=== PATIENT | female | born 1955 | race Two or more races ===

== ENCOUNTER → 2018-02-08 10:02 | Outpatient (CLI) | payer BC, SELFPAY | PROVIDERS: Family Provider Family Medicine; PCP Family Medicine; Visit Provider Family Medicine | DX: Z12.4 Encounter for screening for malignant neoplasm of cervix (principal) | CPT/HCPCS: 87624; 88175; G0145 ==

== ENCOUNTER → 2018-05-28 09:06 | Outpatient (CLI) | payer BC, SELFPAY ==
--- NOTE | 2018-05-28 09:14 | MRI_ITS ---
STUDY: MRI CERVICAL SPINE WITH AND WITHOUT CONTRAST REASON FOR EXAM: Female, 63 years old. Radiculopathy with neck and bilateral arm pain. Fusion of C3-C4 and C5-C6. TECHNIQUE: Standardized fat and water weighted pulse sequences were obtained in the sagittal and axial following administration of Gadavist 7 ml IV. COMPARISON: None FINDINGS: Normal foramen magnum and brainstem-cervical cord junction. Normal craniovertebral junction. Normal anterior atlantoaxial articulation. Normal odontoid process. There is fusion of the C4, C5, C6 vertebral bodies with reversal of the cervical lordosis in this region. The remaining vertebral bodies are normal in height and appearance. C2-3: Normal endplates. Normal disc height, signal and morphology. Normal central canal and intervertebral neural foramina. C3-4: There is mild disc bulge abutting the ventral spinal cord with mild narrowing of the dorsal CSF space. There is bilateral uncovertebral and facet hypertrophy causing mild bilateral foraminal narrowing. The posterior cortex of C4-C6 abut the ventral spinal cord causing ventral thecal sac narrowing though there is maintenance of the dorsal CSF space. There is no neural foraminal narrowing at C4-C5 and C5-C6.. C6-7: There is posterior disc osteophyte complex and ligamentum flavum hypertrophy. Bilateral facet arthrosis and uncovertebral hypertrophy. Moderate central canal narrowing with effacement of the ventral and dorsal CSF space. Marked bilateral foraminal narrowing. C7-T1: Normal endplates. Normal disc height, signal and morphology. Normal central canal and intervertebral neural foramina. Normal cervical cord. Normal visualized soft tissue structures. There is no enhancing abnormality. MRI/Spine Cervical W/WO Contrast IMPRESSION: There is marked degenerative disc disease at C6-C7 as described above. Fusion of C4, C5 and C6 vertebral bodies with reversal of the cervical lordosis in this region. The posterior cortex of C4-C6 abuts the ventral spinal cord causing ventral thecal sac narrowing though the dorsal CSF space is maintained at these levels. Normal cervical cord. Electronically Signed: Padma Glynn, at 15:26 EST Tel , Service support ,
== END ==
LOC: MRI 09:07
PROVIDERS: Family Provider Family Medicine; PCP Family Medicine; Referring Provider Nurse Practitioner Family; Visit Provider Nurse Practitioner Family
DX: Z01.812 Encounter for preprocedural laboratory examination (principal); M48.9 Spondylopathy, unspecified; M54.12 Radiculopathy, cervical region; M47.812 Spondylosis without myelopathy or radiculopathy, cervical region
CPT/HCPCS: 72156; A9585

== ENCOUNTER → 2019-05-14 09:41 | Outpatient (CLI) | payer BC, SELFPAY ==
--- NOTE | 2019-05-14 09:50 | RAD_ITS ---
HISTORY: RECENT C-SPINE SURGERY FEB 2019, PAIN PRIMARILY RT SIDE NECK/MID BACK AREA TECHNIQUE: Thoracic spine 3 views Number of images including paperwork: 3 COMPARISON: None FINDINGS: VERTEBRAE: No acute fracture. Mineralization appears decreased. VERTEBRAL ALIGNMENT: No traumatic subluxation. DISKS AND JOINTS: [id number] multilevel discogenic degenerative changes in the thoracic spine. Posterior spinal fusion hardware noted at C6-7. SOFT TISSUES: Unremarkable paraspinous soft tissues. RAD/Thoracic Spine 3 Views IMPRESSION: Degenerative changes without acute osseous abnormality. at 2253 Reported and signed by: Cheryl Tran MD Electronically Signed: Cheryl Tran MD at 22:53 EST Tel , Service support ,
== END ==
PROVIDERS: PCP Family Medicine; Referring Provider Nurse Practitioner Family; Visit Provider Nurse Practitioner Family
DX: M54.6 Pain in thoracic spine (principal)
CPT/HCPCS: 72072

== ENCOUNTER 2020-01-27 06:02 | Day surgery (SDC) | payer BC, SELFPAY ==
[2020-01-27 06:23] VITALS: BP 111/86; PULSE 90; RESP 16; TEMP 37.6; O2SAT 97; BMI 20.9
[2020-01-27] MEDS: Lactated Ringers 1,000 ML 100 ML IV (06:30)
--- NOTE | 2020-01-27 07:30 | RAD_ITS ---
PROCEDURE: Right C4-C7 cervical steroid injection. DATE OF EXAMINATION: 01/27/2020 INDICATION: Female, 65 years old. Chronic neck pain. FLUOROSCOPY TIME (if supplied): (14.6 seconds) minutes/seconds. 4 intraoperative images were obtained. Intraoperative imaging provided for right C4-C7 steroid injection. RAD/Cerv Spine 4 or 5 Views IMPRESSION: Intraoperative imaging provided for right C4-C7 steroid injection. Electronically Signed: Carroll Chaves, at 9:23 EST , Service support ,
[2020-01-27] MEDS: MethylPREDNISolone Acetate 40 MG/ML Vial IM (07:48)
[2020-01-27] MEDS: Bupivacaine 0.25% 30 ML Vial (07:48)
[2020-01-27 07:55] VITALS: BP 111/86; BP 113/71; PULSE 84; RESP 16; TEMP 37.1; O2SAT 100
[2020-01-27 08:00] VITALS: BP 111/86; BP 119/79; PULSE 83; RESP 16; O2SAT 94
[2020-01-27 08:05] VITALS: BP 111/86; BP 116/63; PULSE 84; RESP 16; O2SAT 94
[2020-01-27 08:10] VITALS: BP 104/70; BP 111/86; PULSE 80; RESP 16; TEMP 36.8; O2SAT 98
[2020-01-27 08:23] VITALS: BP 111/86
--- NOTE | 2020-01-27 14:29 | OP.PCM_ITS ---
Report of Operation Date of Procedure: 01/27/20 Description of Surgical Findings:: PREOPERATIVE DIAGNOSIS: Cervical spondylosis, cervical degenerative disc disease, cervical facet arthropathy POSTOPERATIVE DIAGNOSIS: Cervical spondylosis, cervical degenerative disc disease, cervical facet arthropathy PROCEDURE PERFORMED: Right-sided cervical facet steroid injection, C4, C5, C6, and C7. ANESTHESIA: MAC. BLOOD LOSS: Minimal. COMPLICATIONS: None. DESCRIPTION OF PROCEDURE: History and physical of today was reviewed. Risks and benefits of the procedure were explained. The patient understood and agreed to proceed. Informed consent was obtained. IV inserted per routine protocol. The patient was taken to the operating room and placed in the prone position with a pillow positioned underneath the chest. The neck area was prepped and draped in a sterile fashion using iodine x3. Under fluoroscopy guidance on an AP view, the C4 through C7 vertebral bodies were visualized at approximately 10- degree angle, starting on the Right C4, ending on the Right C7, passing through the C5 and C6. Using a 25-gauge 3-1/2-inch spinal needle, the needle was advanced via the skin. The tip of the needle was maneuvered and directed towards the epiphyseal junction of each corresponding vertebra. Once the tip of the needle was at the vicinity of the medial branch, the needle was pulled approximately 2 mm off the bone. After negative aspiration of blood or CSF and confirmation on AP, oblique as well as lateral view, a total of 4 mL of preservative-free 0.25% Marcaine with 80 mg of Depo-Medrol was injected in divided doses between those four levels. The needles were then removed intact. The patient experienced no sign or symptoms of intrathecal or intravascular injection. The patient experienced no paresthesia. The procedure was completed without any apparent difficulty or any complications. The patient appeared to tolerate it well. ASSESSMENT AND PLAN: This is a 65-year-old female with cervical spondylosis, cervical degenerative disc disease, cervical facet arthropathy status post right-sided cervical facet steroid injection C4-C7, patient will continue her current medications, patient will follow up in approximately 2 weeks for reevaluation.
== END 2020-01-27 08:28 | disposition home or self-care (01) ==
LOC: SDC 06:04 → AC 06:04
PROVIDERS: PCP Family Medicine; Referring Provider Anesthesiology Pain Medicine; Visit Provider Anesthesiology Pain Medicine
PROC: 3E0U3BZ Introduction of Anesthetic Agent into Joints, Percutaneous Approach (ICD-10-PCS; CPT 64490; principal; 2020-01-27 07:25)
DX: M47.812 Spondylosis without myelopathy or radiculopathy, cervical region (principal); M48.9 Spondylopathy, unspecified; M54.12 Radiculopathy, cervical region; M79.18 Myalgia, other site; Z79.891 Long term (current) use of opiate analgesic; M54.6 Pain in thoracic spine; Z98.1 Arthrodesis status
CPT/HCPCS: 64491; 64492; 64490; 72050; J7120

== ENCOUNTER 2020-03-02 09:57 | Day surgery (SDC) | payer BC, SELFPAY ==
[2020-03-02 10:25] VITALS: BP 132/74; PULSE 77; RESP 16; TEMP 36.2; O2SAT 96; BMI 20.5
--- NOTE | 2020-03-02 11:10 | RAD_ITS ---
STUDY: X-RAY - CERVICAL SPINE REASON FOR EXAM: Female, 65 years old. CERVICAL FACETS STEROID INJECTIONS C4-7 RIGHT TECHNIQUE: 4 view(s) of the cervical spine were obtained. COMPARISON: 01/27/2020 FINDINGS: Fluoroscopy the cervical spine was utilized and operating room and 4 images suspended for interpretation.. RAD/Cerv Spine 2 or 3 Views IMPRESSION: Fluoroscopy during steroid injection. Electronically Signed: Vishnu Lazar MD at 17:08 EST Tel , Service support ,
[2020-03-02] MEDS: MethylPREDNISolone Acetate 40 MG/ML Vial IM (11:17)
[2020-03-02] MEDS: Bupivacaine 0.25% 30 ML Vial (11:18)
[2020-03-02 11:27] VITALS: BP 125/87; BP 132/74; PULSE 95; RESP 16; TEMP 36.5; O2SAT 100
[2020-03-02 11:30] VITALS: BP 113/66; BP 132/74; PULSE 79; RESP 16; O2SAT 95
[2020-03-02 11:35] VITALS: BP 119/76; BP 132/74; PULSE 77; RESP 16; O2SAT 96
[2020-03-02 11:40] VITALS: BP 112/75; BP 132/74; PULSE 72; RESP 16; TEMP 36.3; O2SAT 94
--- NOTE | 2020-03-02 11:41 | OP.PCM_ITS ---
Report of Operation Date of Procedure: 03/02/20 Description of Surgical Findings:: PREOPERATIVE DIAGNOSIS: Cervical spondylosis, cervical degenerative disc disease, cervical facet arthropathy POSTOPERATIVE DIAGNOSIS: Cervical spondylosis, cervical degenerative disc disease, cervical facet arthropathy PROCEDURE PERFORMED: Right-sided cervical facet steroid injection, C4, C5, C6, and C7. ANESTHESIA: MAC. BLOOD LOSS: Minimal. COMPLICATIONS: None. DESCRIPTION OF PROCEDURE: History and physical of today was reviewed. Risks and benefits of the procedure were explained. The patient understood and agreed to proceed. Informed consent was obtained. IV inserted per routine protocol. The patient was taken to the operating room and placed in the prone position with a pillow positioned underneath the chest. The neck area was prepped and draped in a sterile fashion using iodine x3. Under fluoroscopy guidance on an AP view, the C4 through C7 vertebral bodies were visualized at approximately 10- degree angle, starting on the right C4, ending on the right C7, passing through the C5 and C6. Using a 25-gauge 3-1/2-inch spinal needle, the needle was advanced via the skin. The tip of the needle was maneuvered and directed towards the epiphyseal junction of each corresponding vertebra. Once the tip of the needle was at the vicinity of the medial branch, the needle was pulled approximately 2 mm off the bone. After negative aspiration of blood or CSF and confirmation on AP, oblique as well as lateral view, a total of 4 mL of preservative-free 0.25% Marcaine with 80 mg of Depo-Medrol was injected in divided doses between those four levels. The needles were then removed intact. The patient experienced no sign or symptoms of intrathecal or intravascular injection. The patient experienced no paresthesia. The procedure was completed without any apparent difficulty or any complications. The patient appeared to tolerate it well. ASSESSMENT AND PLAN: This is a 65-year-old female with cervical spondylosis, cervical degenerative disc disease, cervical facet arthropathy status post right-sided cervical facet steroid injection C4-C7, patient will continue her current medications, patient will follow in approximately 2 weeks for reevaluation.
[2020-03-02 12:00] VITALS: BP 132/74
== END 2020-03-02 12:01 | disposition home or self-care (01) ==
LOC: SDC 10:00 → AC 10:01
PROVIDERS: PCP Family Medicine; Referring Provider Anesthesiology Pain Medicine; Visit Provider Anesthesiology Pain Medicine
PROC: 3E0U3BZ Introduction of Anesthetic Agent into Joints, Percutaneous Approach (ICD-10-PCS; CPT 64490; principal; 2020-03-02 11:05)
DX: M47.812 Spondylosis without myelopathy or radiculopathy, cervical region (principal); Z87.891 Personal history of nicotine dependence; M48.9 Spondylopathy, unspecified; M54.12 Radiculopathy, cervical region; M79.18 Myalgia, other site; R51.9 Headache, unspecified; M54.6 Pain in thoracic spine; Z79.891 Long term (current) use of opiate analgesic
CPT/HCPCS: 64491; 64492; 64490; 72040; J7120

== ENCOUNTER 2020-03-30 06:42 | Day surgery (SDC) | payer BC, SELFPAY ==
[2020-03-30 07:00] VITALS: BP 126/71; PULSE 90; RESP 16; TEMP 37.3; O2SAT 94; BMI 20.5
[2020-03-30] MEDS: Lactated Ringers 1,000 ML 100 ML IV (07:23)
--- NOTE | 2020-03-30 08:00 | RAD_ITS ---
STUDY: X-RAY - CERVICAL SPINE REASON FOR EXAM: Female, 65 years old. RFA C4-C7 TECHNIQUE: AP and lateral fluoroscopic view(s) of the cervical spine were obtained. Dose area product: 0.02 mGycm2 COMPARISON: None FINDINGS: Fluoroscopic images initially show posterior fusion at C6-C7 with subsequent localization at C4, C5 (2 localizers) and C6. Accurate numbering of the cervical spine inhibited by incomplete visualization of the cervical spine RAD/Cerv Spine 2 or 3 Views IMPRESSION: 1. Fluoroscopic guidance for cervical spine localization. Please see operative report. Electronically Signed: Jarad Odonnell MD ([place]) at 9:41 EST , Service support ,
[2020-03-30] MEDS: Lidocaine 1% (30 ml sdv) 30 ML Vial (08:10)
[2020-03-30] MEDS: Bupivacaine 0.25% 30 ML Vial (08:10)
[2020-03-30] MEDS: MethylPREDNISolone Acetate 40 MG/ML Vial IM (08:10)
[2020-03-30 08:25] VITALS: BP 103/69; BP 126/71; PULSE 96; RESP 16; TEMP 36.6; O2SAT 100
[2020-03-30 08:30] VITALS: BP 107/81; BP 126/71; PULSE 88; RESP 16; O2SAT 100
[2020-03-30 08:35] VITALS: BP 101/87; BP 126/71; PULSE 79; RESP 16; O2SAT 97
[2020-03-30 08:37] VITALS: BP 126/71; BP 96/70; PULSE 75; RESP 16; TEMP 36.2; O2SAT 95
--- NOTE | 2020-03-30 08:45 | OP.PCM_ITS ---
Report of Operation Date of Procedure: 03/30/20 Description of Surgical Findings:: PREOPERATIVE DIAGNOSIS: Cervical spondylosis, cervical degenerative disc disease, cervical facet arthropathy POSTOPERATIVE DIAGNOSIS: Cervical spondylosis, cervical degenerative disc disease, cervical facet arthropathy PROCEDURE PERFORMED: Right-sided cervical radiofrequency ablation of the medial branch at C4, C5, C6, and C7. ANESTHESIA: MAC. BLOOD LOSS: Minimal. COMPLICATIONS: None. DESCRIPTION OF PROCEDURE: History and physical of today was reviewed. Risks and benefits of the procedure were explained. The patient understood and agreed to proceed. Informed consent was obtained. IV inserted per routine protocol. The patient was taken to the operating room and placed in the prone position with a pillow positioned underneath the chest. The neck area was prepped and draped in a sterile fashion using iodine x3. Under fluoroscopy guidance on an AP view, the C4 through C7 vertebral bodies were visualized. The skin and subcu taneous tissue was anesthetized with approximately 10 mL of 1% lidocaine using a 25-gauge regular needle. Under direct visualization on fluoroscopy on a lateral view, using a 21-gauge 10-cm with a 10-mm curved active-tip radiofrequency ablation needle, the needle was passed through the skin. The tip of the needle was maneuvered and directed towards the epiphyseal junction of each corresponding vertebra, starting on the right C4, ending on the right C7, passing through the C5 and C6. Once the tip of the needle was at the vicinity of the medial branch and at the middle of the trapezoid on the lateral view, the stylette of each needle was then removed. After negative aspiration of blood or CSF and confirmation on AP, oblique as well as lateral view, radiofrequency ablation probe was then inserted at each level. Impedance was then recorded at C4 to be 309 ohm, at C5 to be 284 ohm, at C6 to be 281 ohm, and at C7 to be 245 ohm. Motor-evoked potential was then initiated to 1.5 volt without any motor response to each corresponding level or the right arm. The probe was then removed intact and a total of 4 mL of preservative-free 1% lidocaine was injected in divided doses between those four levels after negative aspiration of blood or CSF. After repeated confirmation, the radiofrequency ablation probe was then inserted and after repeated confirmation on AP, oblique as well as lateral view, radiofrequency ablation was then initiated to approximately 80 degree Celsius for 60 second at each level. Once concluded, the probe was then removed intact. A total of 4 mL of preservative-free 0.25% Marcaine with 40 mg of Depo-Medrol was injected in divided doses between those four levels. The needles were then removed intact. The patient experienced no sign or symptoms of intrathecal or intravascular injection. The patient experienced no paresthesia. The procedure was completed without any apparent difficulty or any complications. The patient appeared to tolerate it well. Sensory as well as motor exam was unchanged from prior to the procedure. ASSESSMENT AND PLAN: This is a 65-year-old female with cervical spondylosis, cervical degenerative disc disease, cervical facet arthropathy status post right-sided cervical radiofrequency ablation of the medial branch at C4-C7, patient will continue her current medications, patient will follow in approximately 2 weeks for reevaluation.
[2020-03-30 09:09] VITALS: BP 126/71
== END 2020-03-30 09:10 | disposition home or self-care (01) ==
LOC: SDC 06:43 → AC 06:44
PROVIDERS: PCP Family Medicine; Referring Provider Anesthesiology Pain Medicine; Visit Provider Anesthesiology Pain Medicine
PROC: (CPT 62281; principal; 2020-03-30 07:45)
DX: M47.812 Spondylosis without myelopathy or radiculopathy, cervical region (principal); Z87.891 Personal history of nicotine dependence; Z98.1 Arthrodesis status; M48.9 Spondylopathy, unspecified; M54.12 Radiculopathy, cervical region; M79.18 Myalgia, other site; R51.9 Headache, unspecified; M54.6 Pain in thoracic spine; Z79.891 Long term (current) use of opiate analgesic
CPT/HCPCS: 62281 ×5; 72040; 76000; J7120

== ENCOUNTER → 2020-07-10 17:45 | Outpatient (CLI) | payer BC, SELFPAY ==
[2020-07-16 03:06] LABS: Age Gdln ACOG Testing 30-65 (.); HPV Genotype 16, Aptima Positive (Negative)
[2020-07-16 16:58] LABS: HPV APTIMA, High Risk Positive (Negative); HPV Genotype 18,45 Aptima Negative (Negative); HPV Reflexed? YES, CHARGE PATIENT
== END ==
PROVIDERS: PCP Family Medicine; Referring Provider Family Medicine; Visit Provider Family Medicine
DX: Z12.4 Encounter for screening for malignant neoplasm of cervix (principal); Z01.419 Encounter for gynecological examination (general) (routine) without abnormal findings
CPT/HCPCS: 87624; 88175; G0145

== ENCOUNTER 2021-01-11 08:00 | Day surgery (SDC) | payer BC, SELFPAY ==
[2021-01-11] VITALS (7 sets, daily range): BP systolic 106–124; BP diastolic 60–76; PULSE 70–84; RESP 16; TEMP 36.1–36.3; O2SAT 96–100; BMI 19.3
[2021-01-11] MEDS: Lactated Ringers 1,000 ML 100 ML IV (08:45)
[2021-01-11] MEDS: Lidocaine 1% (5 ml sdv) 5 ML Vial (09:18)
[2021-01-11] MEDS: MethylPREDNISolone Acetate 80 MG/ML Vial (09:19)
[2021-01-11] MEDS: Bupivacaine 0.25% 30 ML Vial (09:20)
--- NOTE | 2021-01-11 09:23 | OP.PCM_ITS ---
Report of Operation Date of Procedure: 01/11/21 Pre-Operative Diagnosis: Thoracic spondylosis, thoracic degenerative disc disea se, thoracic facet arthropathy Post-Operative Diagnosis: Thoracic spondylosis, thoracic degenerative disc disease, thoracic facet arthropathy Surgery/Procedure Performed:: Right thoracic medial branch injection at T3, T4, T5, T6 Description of Surgical Findings:: DESCRIPTION OF PROCEDURE: History and physical of today was reviewed. Risks and benefits of the procedure were explained. The patient understood and agreed to proceed. Informed consent was obtained. IV inserted per routine protocol. The patient was taken to the operating room and placed in the prone position with a pillow positioned underneath the chest. The mid back area was prepped and draped in a sterile fashion using iodine x3. Under fluoroscopy guidance on AP view, the T3 through T6 vertebral bodies were visualized. The skin and subcutaneous tissue was anesthetized with approximately 5 mL of 1% lidocaine using a 25-gauge regular needle. Under direct visualization on fluoroscopy, at approximately 15-degree angle, starting on the right T3, ending on the right T6, passing through the T4 and T5, using a 25-gauge 3-1/2-inch spinal needle, the needle was passed through the skin. The tip of the needle was maneuvered and directed towards the epiphyseal junction of each corresponding vertebra. Once the tip of the needle was at the vicinity of the medial branch and in contact with the bone, the needle was pulled approximately 2 mm off the bone. After negative aspiration for blood or CSF and confirmation on AP as well as oblique view and lateral view, a total of 6 mL of preservative-free 0.25% Marcaine with 80 mg of Depo- Medrol was injected in divided doses between those four levels. The needles were then removed intact. The patient experienced no sign or symptoms of intrathecal or intravascular injection. The patient experienced no paresthesia. The procedure was completed without any apparent difficulty or any complications. The patient appeared to tolerate it well. ASSESSMENT AND PLAN: This is a 66-year-old female with Thoracic spondylosis, thoracic degenerative disc disease, thoracic facet arthropathy status post right thoracic medial branch block at T3-T6, the patient will continue her current medications, the patient will follow in approximately 1 week for reevaluation. Type of Anesthesia: MAC Estimated Blood Loss (mL): Minimal Complications None.
--- NOTE | 2021-01-11 09:50 | RAD_ITS ---
PROCEDURE: Right T3-T6 medial branch block. DATE OF EXAMINATION: 01/11/2021. INDICATION: Female, 66 years old. Back pain. FLUOROSCOPY TIME (if supplied): (13.6 seconds) minutes/seconds. 5 images were obtained. RAD/Thoracic Spine 3 Views IMPRESSION: Intraoperative imaging provided for right sided T3-T6 medial branch block. Electronically Signed: Carroll Chaves MD at 15:46 EDT , Service support ,
== END 2021-01-11 10:10 | disposition home or self-care (01) ==
LOC: SDC 08:04 → AC 08:06
PROVIDERS: PCP Family Medicine; Visit Provider Anesthesiology Pain Medicine
PROC: 3E0R3BZ Introduction of Anesthetic Agent into Spinal Canal, Percutaneous Approach (ICD-10-PCS; CPT 62281; principal; 2021-01-11 09:45)
DX: M47.814 Spondylosis without myelopathy or radiculopathy, thoracic region (principal); M51.34 Other intervertebral disc degeneration, thoracic region; M46.94 Unspecified inflammatory spondylopathy, thoracic region; M19.90 Unspecified osteoarthritis, unspecified site; Z79.891 Long term (current) use of opiate analgesic; Z79.899 Other long term (current) drug therapy; Z87.891 Personal history of nicotine dependence
CPT/HCPCS: 01992; 64491; 64492; 64490; 72072; J7120

== ENCOUNTER → 2021-03-10 15:20 | Outpatient (CLI) | payer BC, SELFPAY | PROVIDERS: PCP Family Medicine; Visit Provider Family Medicine | DX: Z20.828 Contact with and (suspected) exposure to other viral communicable diseases (principal) | CPT/HCPCS: 87633; 87635; U0005; U0003 ==

== ENCOUNTER → 2022-08-25 | Outpatient (CLI) | payer BC, SELFPAY ==
[2022-08-31 07:08] LABS: Age Gdln ACOG Testing 30-65 (.); HPV APTIMA, High Risk Positive (Negative); HPV Genotype 16, Aptima Positive (Negative); HPV Genotype 18,45 Aptima Negative (Negative)
[2022-09-03 11:23] LABS: HPV Reflexed? YES, CHARGE PATIENT
== END | disposition home or self-care (01) ==
LOC: LABSPEC 16:15
PROVIDERS: PCP Family Medicine; Referring Provider Family Medicine; Visit Provider Family Medicine
DX: Z12.4 Encounter for screening for malignant neoplasm of cervix (principal)
CPT/HCPCS: 87624; 88175; G0145

== ENCOUNTER → 2022-09-23 | Outpatient (CLI) | payer BC, SELFPAY ==
--- NOTE | 2022-09-23 12:31 | MRI_ITS ---
EXAM: MR HEAD WITHOUT AND WITH INTRAVENOUS CONTRAST CLINICAL INDICATION: Migraine headache. History of left petrous mass resection. TECHNIQUE: Multiplanar and multisequence MR images of the brain were obtained without and with intravenous contrast. CONTRAST: IV 10ml Clariscan COMPARISON: No relevant prior studies available. FINDINGS: BRAIN AND EXTRA-AXIAL SPACES: Thin sections through the IACs fails to demonstrate any enhancing mass lesions along the 7th and 8th nerve bundles or any abnormal contrast enhancement of the membranous labyrinths. Following IV contrast administration, there is no visible or obvious enhancing mass intra-axially and extra-axially. No intra- or extra-axial hemorrhage. No evidence of acute infarct. There is preservation of the canas/white matter interface. Posterior fossa structures are unremarkable. Ventricles are appropriate for age. No hydrocephalus. Basal cisterns are patent. SELLA: Unremarkable. Normal sella turcica, pituitary gland, infundibular stalk, optic chiasm and hypothalamus. AUDITORY SYSTEM: Unremarkable. The internal auditory canals are patent. BONES/JOINTS: Left craniotomy. No discrete lytic or blastic abnormalities. SINUSES: Unremarkable as visualized. Clear. MASTOID AIR CELLS: Unremarkable as visualized. Clear. ORBITS: Unremarkable as visualized. Both globes, extraocular muscles, optic nerves and retrobulbar fat appear unremarkable. VASCULATURE: Unremarkable as visualized. Normal flow voids in the major intracranial circulation. OTHER FINDINGS: Asymmetry in signal intensity of the left petrous apex when compared to the right. MRI/Brain W/WO Contrast IMPRESSION: 1. No MRI evidence of any suspicious residual enhancing mass intra-axially and extra-axially. 2. Asymmetry in signal intensity of the left petrous apex when compared to the right. This may be the previous site of left petrous mass resection. The mass itself is difficult to confirm. Comparison with preoperative MRI of the brain will be helpful. 3. Otherwise negative MRI of the brain with and without contrast. Electronically Signed: Bhavesh Pace MD at 9:56 EDT ,
[2022-09-23 13:29] LABS: CREATININE FINGERSTICK < 0.9 mg/dL (0.55-1.02); EGFR FINGERSTICK > 60.0000 mL/min (>60)
== END | disposition home or self-care (01) ==
PROVIDERS: PCP Family Medicine; Referring Provider Psychiatry & Neurology Neurology; Visit Provider Psychiatry & Neurology Neurology
DX: G43.009 Migraine without aura, not intractable, without status migrainosus (principal); Z98.890 Other specified postprocedural states; G50.1 Atypical facial pain
CPT/HCPCS: 70553; A9575

== ENCOUNTER → 2023-12-27 | Outpatient (CLI) | payer BC, SELFPAY ==
--- NOTE | 2023-12-27 08:25 | MRI_ITS ---
HISTORY: neck pain; gait imbalance; evaluate for myelopathy. TECHNIQUE: Multiplanar and multisequence MR images of the cervical spine were obtained without contrast. 325 images. COMPARISON: 05/28/2018. FINDINGS: VERTEBRAE: Vertebral body heights maintained. Mild degenerative endplate changes of C2-3, C3-4, and C6-7. Artifact from interval placement of posterior spinal fusion hardware at C6-7. VERTEBRAL ALIGNMENT: Chronic mild reversal of the cervical lordosis. No significant anterior or posterior subluxation. SPINAL CORD: Cervical cord signal and morphology within normal limits. SOFT TISSUES: No prevertebral fluid collection. INTERVERTEBRAL DISCS: C2-3: Very mild posterior disc protrusion without significant central canal stenosis or foraminal narrowing. C3-4: Increased size of mild posterior disc bulge osteophyte complex with uncovertebral and facet arthropathy resulting in mild ventral cord abutment, moderate central canal stenosis, and bilateral foraminal narrowing. C4-5: Chronic fusion across the intervertebral disc space. Postoperative and mild residual degenerative change resulting in minimal narrowing of the thecal sac and no significant foraminal narrowing, similar to prior. C5-6: Chronic fusion across the intervertebral disc space. Interval decompressive laminectomy. No significant central canal stenosis or foraminal narrowing. C6-7: Interval decompressive laminectomy without recurrent posterior disc protrusion or significant central canal stenosis. Decreased bilateral foraminal narrowing. C7-T1: No significant posterior disc protrusion, central canal stenosis, or foraminal narrowing. MRI/Spine Cervical (Routine) IMPRESSION: Chronic fusion of C4-5 and C5-6. Mildly increased degenerative disc disease above the level of fusion resulting in moderate spinal canal stenosis, mild cord abutment, and bilateral foraminal narrowing of C3-4. Interval decompressive laminectomies of C5-6 and C6-7 with resolution of spinal canal stenosis and decreased bilateral foraminal narrowing at C6-7. Electronically Signed: Dennise Castaneda MD at 13:42 EDT ,
--- NOTE | 2023-12-27 12:32 | NEURO ---
NCS and/or EMG Patient Report Ordering Doctor: Sandoval Jack DATE OF SERVICE: 12/27/23 Aurora presents with intermittent numbness in the feet and unsteadiness with gait. She reports intermittent lower back pain. Electrodiagnostic findings: Left peroneal motor nerve demonstrates normal distal latency, amplitude with a drop in conduction across the fibular head. Right peroneal motor nerve demonstrates normal distal latency, amplitude and conduction velocity. Tibial motor response within normal limits bilaterally. Prolonged sural latency is noted bilaterally with diminished conduction. Prolonged tibial F?wave bilaterally. Prolonged H?reflex bilaterally. Needle EMG testing was performed in the lower limbs. Per unit action potentials with normal amplitude and duration without polyphasic activity. Electrodiagnostic impression: This is an abnormal study in the lower limbs 1. Electrodiagnostic findings suggestive of peripheral polyneuropathy, sensory greater than motor, without evidence of axon loss. 2. No electrodiagnostic evidence for lumbosacral radiculopathy. Multi Select Codes Neurology Neurology Interp Codes: 08779-69 Musc test done w/n test comp (interp) (2) and 29234-91 Nrv cndj test 9-10 studies (interp)
== END | disposition home or self-care (01) ==
PROVIDERS: PCP Family Medicine; Referring Provider Psychiatry & Neurology Neurology; Visit Provider Psychiatry & Neurology Neurology
DX: M54.2 Cervicalgia (principal); R26.9 Unspecified abnormalities of gait and mobility; R20.0 Anesthesia of skin; G62.9 Polyneuropathy, unspecified
CPT/HCPCS: 72141; 95886; 95911

== ENCOUNTER → 2024-11-19 | Outpatient (CLI) | payer MEDICARE, SELFPAY ==
[2024-11-19 15:17] LABS: Hematocrit 49.2 % (37-47); Hemoglobin 15.7 g/dL (12.0-15.0); Immature Granulocytes Count 0.010 X10^3/uL (0.0-0.0); Mean Corp Hgb Conc 31.9 g/dL (32-36); Mean Corpuscular Volume 94.3 fL (81-99); Mean Platelet Vol. 10.0 fl (6.2-12.0); NRBC Flagged by Analyzer 0 % (0-5); Platelet Count 152 K/mm3 (150-450); RBC Distribution Width CV 13.1 % (11.6-14.6); RBC Distribution Width SD 45.4 fl (35.1-43.9); Red Blood Count 5.22 M/mm3 (4.2-5.4); White Blood Count 6.5 K/mm3 (4.4-11.0)
[2024-11-19 15:34] LABS: AST(SGOT) 27 U/L (<=31); Alanine Aminotransfer ALT/SGPT 19 U/L (<=34); Albumin, Serum 4.1 g/dL (3.4-4.8); Alkaline Phosphatase 92 U/L (35-104); Anion Gap 10 (5-15); BUN 5 mg/dL (4-19); BUN/Creat Ratio 7.7 RATIO (10-20); Calcium,Total 9.3 mg/dL (7.6-11.0); Carbon Dioxide 28.5 mmol/L (21.0-32.0); Chloride 100 mmol/L (98-108); Cholesterol 182 mg/dL (<=200); Globulin 3.0 g/dL (2.2-4.2); Glucose 97 mg/dL (70-99); Low Density Lipoprotein Calc. 88 mg/dL; Potassium 4.2 mmol/L (3.3-5.1); Triglycerides 50 mg/dL; Very Low Density Lipoprotein 10 mg/dL (5-40); cholesterol:hdl ratio screen 2.16
[2024-11-26 21:07] LABS: HPV APTIMA, High Risk Positive (Negative); HPV Genotype 16, Aptima Positive (Negative); HPV Genotype 18,45 Aptima Negative (Negative)
== END | disposition home or self-care (01) ==
PROVIDERS: PCP Family Medicine; Referring Provider Family Medicine; Visit Provider Family Medicine
DX: Z00.00 Encounter for general adult medical examination without abnormal findings (principal); R87.810 Cervical high risk human papillomavirus (HPV) DNA test positive; Z12.4 Encounter for screening for malignant neoplasm of cervix; M85.80 Other specified disorders of bone density and structure, unspecified site; I95.1 Orthostatic hypotension; G50.0 Trigeminal neuralgia
CPT/HCPCS: 36415; 80053; 80061; 85025; 87624; 88175; G0145